=== PATIENT | male | born 1985 | race Caucasian/White ===

== ENCOUNTER 2017-07-15 19:29 | Emergency (ER) | payer OTHER ==
[2017-07-15] MEDS ORDERED: ACETAMINOPHEN TAB 325 MG TAB PO STA (20:13)
[2017-07-15] MEDS ORDERED: IBUPROFEN 600 MG TAB PO STA (20:13)
--- NOTE | 2017-07-15 20:20 | ED ---
Chest Pain HPI - General Chief Complaint: Chest Pain Stated Complaint: chest pain Time Seen by Provider: 07/15/17 19:51 Source: patient Mode of arrival: wheelchair Limitations: no limitations - History of Present Illness Initial Comments: 32-year-old male patient presents to the emergency department today for complaints of left-sided chest pain and generalized tingling. Patient states that he was at work today when he started to get this dull ache in the left side of his chest. He states that he then proceeded to have a generalized tingling feeling over his whole body. States it is worse in the left side of his neck and the right thigh. He states that when he turns his head a certain way and cracks the tingling seems to go away. He states that the chest pain has resolved. Denies any shortness of breath with this. Denies any sweats, nausea, or vomiting. He states that he has had upper respiratory symptoms and has been coughing. He states today when he got to work he was coughing up green sputum. He states he does smoke cigarettes. He denies any drug use or alcohol use. Patient denies any recent rash, chills, abdominal pain, nausea, vomiting, diarrhea, constipation, back pain, dizziness, weakness, hematuria, dysuria, urinary urgency, urinary frequency, headache, visual changes, or any other complaints. - Related Data Home Medications Medication Instructions Recorded Confirmed No Known Home Medications [No 07/15/17 07/15/17 Known Home Medications] Allergies Allergy/AdvReac Type Severity Reaction Status Date / Time No Known Allergies Allergy Verified 07/15/17 20:20 Review of Systems ROS Statement: Those systems with pertinent positive or pertinent negative responses have been documented in the HPI. ROS Other: All systems not noted in ROS Statement are negative. EKG Findings - EKG Comments: EKG Findings:: EKG obtained at 1943 shows sinus tachycardia with a ventricular rate of 102, SC interval 120, QRS duration 82, QT 314, QTC 409. No evidence of ST elevation or depression. Past Medical History Past Medical History: No Reported History History of Any Multi-Drug Resistant Organisms: None Reported Past Surgical History: Hernia Repair Past Psychological History: No Psychological Hx Reported Smoking Status: Former smoker Past Alcohol Use History: None Reported Past Drug Use History: None Reported General Exam Limitations: no limitations General appearance: alert, in no apparent distress, other (This is a thin- appearing, well-developed adult male patient in no acute distress. Vital signs upon presentation were temperature 100.8F, pulse 114, respirations 18, blood pressure 124/79, pulse ox 99% on room air.) Eye exam: Present: normal appearance, PERRL, EOMI. Absent: scleral icterus, conjunctival injection, periorbital swelling ENT exam: Present: mucous membranes moist, TM's normal bilaterally, other (No evidence of tonsillar hypertrophy or exudate.). Absent: normal exam, normal oropharynx (Oropharyngeal erythema) Neck exam: Present: normal inspection. Absent: tenderness, meningismus, lymphadenopathy Respiratory exam: Present: normal lung sounds bilaterally. Absent: respiratory distress, wheezes, rales, rhonchi, stridor, chest wall tenderness Cardiovascular Exam: Present: regular rate, normal rhythm, normal heart sounds. Absent: systolic murmur, diastolic murmur, rubs, gallop, clicks GI/Abdominal exam: Present: soft, normal bowel sounds. Absent: distended, tenderness, guarding, rebound, rigid Neurological exam: Present: alert, oriented X3, CN II-XII intact Psychiatric exam: Present: normal affect, normal mood Skin exam: Present: warm, dry, intact, normal color. Absent: rash Course Vital Signs 07/15/17 07/15/17 07/15/17 19:34 20:07 21:00 Temperature 100.8 F H Pulse Rate 114 H 106 H 78 Respiratory 18 18 20 Rate Blood Pressure 124/79 126/76 124/70 O2 Sat by Pulse 99 98 97 Oximetry 07/15/17 22:33 Temperature 97.8 F Pulse Rate 77 Respiratory 20 Rate Blood Pressure 118/70 O2 Sat by Pulse 96 Oximetry Chest Pain MDM - MDM 32-year-old male patient presents to the emergency department today for evaluation of generalized body tingling and left-sided chest pain. Patient also reported that he had been coughing throughout the day with positive sputum production. Patient did have elevated temperature upon arrival at 100.8. Physical examination did reveal oropharyngeal erythema. Exam is otherwise unremarkable. Labs are obtained and did show sodium of 136. He did have decreased TSH level at 0.292. Chest x-ray was clear for any acute cardiopulmonary process. Influenza testing was negative. I did discuss findings with the patient. I informed him of his low TSH level and instructed him to follow up with his primary care physician for further evaluation of this. I informed him that his symptoms most likely related to viral upper respiratory infection. He is instructed to increase his fluids, take over-the- counter nasal decongestants for symptom relief. He is instructed to return here immediately for any new, worsening, or concerning symptoms. He verbalizes understanding and agrees with this plan. Disposition Clinical Impression: Viral upper respiratory illness, Hyperthyroidism, Chest pain Disposition: HOME SELF-CARE Condition: Good Instructions: Chest Pain (ED), Hyperthyroidism (ED), Upper Respiratory Infection (ED) Additional Instructions: Increase fluids. Rest. Take [id number] nasal decongestants for symptom relief. Follow-up with your primary care physician for recheck as soon as possible. Have your thyroid levels rechecked. Return here immediately for any new, worsening, or concerning symptoms. Referrals: None,Stated [Primary Care Provider] - 1-2 days Time of Disposition: 22:26
--- NOTE | 2017-07-15 20:42 | XR ---
EXAMINATION TYPE: XR chest 2V DATE OF EXAM: 07/15/2017 COMPARISON: 11/14/2009 HISTORY: Chest pain TECHNIQUE: Frontal and lateral views of the chest are obtained. FINDINGS: Heart and mediastinum are normal. Lungs are clear. Costophrenic angles are clear. There ar e chest leads. Bony thorax appears intact. IMPRESSION: Normal chest. No change.
[2017-07-15 20:53] LABS: Basophils % (A) 0 %; Eosinophils # (A) 0.1 k/uL (0-0.7); Eosinophils % (A) 1 %; HCT 45.8 % (39.0-53.0); HGB 15.1 gm/dL (13.0-17.5); Lymphocytes # (A) 0.6 k/uL (1.0-4.8); Lymphocytes % (A) 7 %; MCH 29.1 pg (25.0-35.0); MCV 88.1 fL (80.0-100.0); Mean Platelet Volume 8.9; Monocytes # (A) 0.6 k/uL (0-1.0); Monocytes % (A) 7 %; Neutrophils # (A) 7.7 k/uL (1.3-7.7); Neutrophils % (A) 85 %; Platelet Count 153 k/uL (150-450); RDW 14.9 % (11.5-15.5); WBC 9.1 k/uL (3.8-10.6)
[2017-07-15 21:03] LABS: ALT 48 U/L (21-72); AST 23 U/L (17-59); Albumin 3.8 g/dL (3.5-5.0); Alkaline Phosphatase 60 U/L (38-126); Anion Gap 8 mmol/L; Blood Urea Nitrogen 12 mg/dL (9-20); Calcium 9.6 mg/dL (8.4-10.2); Carbon Dioxide 28 mmol/L (22-30); Chloride 100 mmol/L (98-107); Glucose 90 mg/dL (74-99); Magnesium 1.7 mg/dL (1.6-2.3); Potassium 4.2 mmol/L (3.5-5.1); Sodium 136 mmol/L (137-145); Total Bilirubin 0.4 mg/dL (0.2-1.3); Total Protein 5.9 g/dL (6.3-8.2)
[2017-07-15 21:59] LABS: T4, Free (Free Thyroxine) 1.46 ng/dL (0.78-2.19)
[2017-07-16 23:12] VITALS: BP 118/70; PULSE 77; RESP 20; TEMP 97.8
== END 2017-07-15 22:35 | disposition home or self-care (01) ==
LOC: EC 19:29
DX: R07.9 Chest pain, unspecified (principal); J06.9 Acute upper respiratory infection, unspecified; E05.90 Thyrotoxicosis, unspecified without thyrotoxic crisis or storm; Z87.891 Personal history of nicotine dependence
CPT/HCPCS: 36415; 71046; 80053; 83735; 84439; 84443; 84484; 85025; 87502; 93005; 99285

== ENCOUNTER 2018-02-08 18:03 | Emergency (ER) | payer OTHER ==
[2018-02-08 18:19] VITALS: BP 148/85; PULSE 77; RESP 18; TEMP 98.7
--- NOTE | 2018-02-08 19:04 | ED ---
General Adult HPI - General Chief complaint: Neck Pain/Injury Stated complaint: HEAD AND NECK PAIN Time Seen by Provider: 02/08/18 18:30 Source: patient, RN notes reviewed Mode of arrival: ambulatory Limitations: no limitations - History of Present Illness Initial comments: This is a 33yo male with PMH of poor dentition and previous dental abscess who presents today for cc of right sided dental pain. Pt states that since he has had pain his his right lower tooth, he says that the tooth has been cracked for "awhile now" and he has multiple dental caries. Pt states that the pain has been increasing and he is sensitive to some cold and hot foods. Pt denies facial swelling, trismus, difficulty breathing or swallowing, masses below tongue. Pt states that the pain now radiating to the right ear and was worried he may need some antibiotics for an abscess. Pt denies feeling any palpable dental abscess. Patient denies any recent fever, chills, shortness of breath, chest pain, back pain, abdominal pain, nausea or vomiting, numbness or tingling, dysuria or hematuria, constipation or diarrhea, headaches or visual changes, or any other complaints. - Related Data Previous Rx's Medication Instructions Recorded Ibuprofen [Motrin] 800 mg PO Q6H PRN 7 Days #28 tab 02/08/18 Penicillin V Potassium [Pen Vee K] 500 mg PO QID 7 Days #28 tablet 02/08/18 Allergies Allergy/AdvReac Type Severity Reaction Status Date / Time No Known Allergies Allergy Verified 02/08/18 18:16 Review of Systems ROS Statement: Those systems with pertinent positive or pertinent negative responses have been documented in the HPI. ROS Other: All systems not noted in ROS Statement are negative. Constitutional: Denies: fever, chills Eyes: Denies: eye pain, eye discharge, vision change ENT: Reports: as per HPI, ear pain, dental pain. Denies: throat pain, hearing loss Respiratory: Denies: cough, dyspnea, wheezes, hemoptysis Cardiovascular: Denies: chest pain, palpitations, orthopnea Endocrine: Denies: fatigue Gastrointestinal: Denies: abdominal pain, nausea, vomiting, diarrhea, constipation Genitourinary: Denies: urgency, dysuria, frequency, hematuria Musculoskeletal: Denies: back pain, joint swelling, arthralgia Skin: Denies: rash, lesions Neurological: Denies: headache, weakness, numbness, paresthesias, confusion, abnormal gait Past Medical History Past Medical History: No Reported History History of Any Multi-Drug Resistant Organisms: None Reported Past Surgical History: Hernia Repair Past Psychological History: No Psychological Hx Reported Smoking Status: Current every day smoker Past Alcohol Use History: None Reported Past Drug Use History: None Reported General Exam - General Exam Comments Initial Comments: General: The patient is awake and alert, in no distress, and does not appear acutely ill. Eye: Pupils are equal, round and reactive to light, extra-ocular movements are intact. No nystagmus. There is normal conjunctiva bilaterally. No signs of icterus. Ears, nose, mouth and throat: There are moist mucous membranes. pt has overall poor dentition with multiple dental caries, missing and cracked teeth. Pt admits to pain with percussion of what appears to be teeth #29 and #30. There is no areas of flutulance of the adjacent gingiva. No swelling, or masses below the tongue. No soft tissue swelling of the face or buccal mucosa. Neck: The neck is supple, there is no tenderness or JVD. Cardiovascular: There is a regular rate and rhythm. No murmur, rub or gallop is appreciated. Respiratory: Lungs are clear to auscultation, respirations are non-labored, breath sounds are equal. No wheezes, stridor, rales, or rhonchi. Neurological: A&O x 3. CN II-XII intact, There are no obvious motor or sensory deficits. Coordination appears grossly intact. Speech is normal. Skin: Skin is warm and dry and no rashes or lesions are noted. Psychiatric: Cooperative, appropriate mood & affect, normal judgment. Limitations: no limitations Course Vital Signs 02/08/18 18:16 Temperature 98.7 F Pulse Rate 77 Respiratory 18 Rate Blood Pressure 148/85 O2 Sat by Pulse 99 Oximetry Medical Decision Making - Medical Decision Making This is a 33yo male with CC of right sided dental pain concerning for possible pulpitis or periapical abscess. Exam revealed no palpable area of fluctulance or abscess however there is pain to percussion over what appears teeth #29 and # 30 concerning for periapical abscess. Given (-) ROS, stable vs, no evidence of tracking or abscess on exam I have low suspicion for systemic Case was discussed with Dr. Esquivel at this time we feel pt is stable for d/c with RX for PCN VK 500 QID, ibuprofen 800mg for pain mgmt, and oral surgery f/u in 24-48 hours for extraction. Pt states he was pleased with plan and d/c in stable condition. Disposition Clinical Impression: Dental implant pain Disposition: HOME SELF-CARE Condition: Good Instructions: Dental Abscess (ED), Toothache (ED) Additional Instructions: Please use medication as discussed. Please follow-up with oral surgery in the next 24-48 hours. Please return to emergency room if the symptoms increase or worsen or for any other concerns as discussed. Prescriptions: Ibuprofen [Motrin] 800 mg PO Q6H PRN 7 Days #28 tab PRN Reason: Pain Penicillin V Potassium [Pen Vee K] 500 mg PO QID 7 Days #28 tablet Is patient prescribed a controlled substance at d/c from ED?: No Referrals: None,Stated [Primary Care Provider] - 1-2 days Time of Disposition: 19:03
== END 2018-02-08 19:14 | disposition home or self-care (01) ==
LOC: EC 18:03
DX: M27.69 Other endosseous dental implant failure (principal); F17.200 Nicotine dependence, unspecified, uncomplicated
CPT/HCPCS: 99283